=== PATIENT | male | born 1945 | race Caucasian/White ===

== ENCOUNTER 2021-01-29 15:22 | Inpatient (IN) | payer MEDICARE, OTHER ==
[~2021-01-29] VITALS: Ht 165.1 cm; Wt 77.1 kg
--- NOTE | 2021-01-29 15:35 | NUR ---
TONA JURADO From Home "LKWT 2100 last night was his usual self this am family noticed him slower/not able to talk" BS-[id number]. Connected to the monitor and pulse ox. kept comfortable will continue to monitor accordingly.
[2021-01-29] MEDS ORDERED: IOHEXOL-350 100 ML VIAL IV ONE (15:36)
[2021-01-29] MEDS ORDERED: CT SWABBABLE VALVE TRANS SET 1 EA INFUS.SET MC ONE (15:36)
[2021-01-29] MEDS ORDERED: IV NS 0.9% 250 ML IV ONE (15:37)
--- NOTE | 2021-01-29 15:37 | NUR ---
wheeled patient via [facility] for ct
--- NOTE | 2021-01-29 15:45 | NUR ---
Patient came back from ct
--- NOTE | 2021-01-29 16:10 | NUR ---
covid 19 swab collected and sent to lab
[2021-01-29] MEDS ORDERED: GABA-532 PO (16:16)
[2021-01-29] MEDS ORDERED: AMLO-212 PO (16:16)
[2021-01-29] MEDS ORDERED: ATOR20TA PO (16:16)
[2021-01-29] MEDS ORDERED: SITA25TA PO (16:16)
[2021-01-29] MEDS ORDERED: FOLI0.8C PO (16:16)
[2021-01-29] MEDS ORDERED: METO50TA16 PO (16:16)
[2021-01-29] MEDS ORDERED: CLOP75TA15 PO (16:16)
[2021-01-29 16:25] LABS: BASOPHILS # (AUTO) 0.1 /CMM (0.0-0.2); BASOPHILS % (AUTO) 0.4 % (0.0-2.0); EOSINOPHILS % (AUTO) 0.3 % (0.0-6.0); HEMATOCRIT 45 % (39-51); HEMOGLOBIN 14.6 g/dL (13.5-17.5); LYMPHOCYTES % (AUTO) 13.7 % (20.0-44.0); MEAN CORPUSCULAR HGB CONC 33 g/dl (31.0-36.0); MEAN CORPUSCULAR VOLUME 86 fL (80-96); MONOCYTES % (AUTO) 6.6 % (2.0-12.0); NEUTROPHILS # (AUTO) 11.4 /CMM (1.8-8.9); PLATELET COUNT (AUTO) 186 /CMM (150-450); RED BLOOD CELL COUNT(AUTO) 5.18 MIL/uL (4.5-6.0); WHITE BLOOD COUNT (AUTO) 14.5 K/uL (4.3-11.0)
--- NOTE | 2021-01-29 16:30 | NUR ---
MOVE SHEET SUBMITTED AND CALLED FOR TELE BED.
[2021-01-29 16:43] LABS: ALANINE AMINOTRANSFERASE 29 U/L (12-78); ALBUMIN 3.3 g/dL (3.4-5.0); ALKALINE PHOSPHATASE 77 U/L (46-116); ASPARTATE AMINOTRANSFERASE 15 U/L (15-37); BILIRUBIN,DIRECT 0.1 mg/dL (0.0-0.2); BILIRUBIN,TOTAL 0.8 mg/dL (0.2-1.0); CALCIUM, SERUM 8.7 mg/dL (8.5-10.1); CARBON DIOXIDE 21 mmol/L (21-32); CHLORIDE 101 mmol/L (98-107); CREATININE 1.1 mg/dL (0.6-1.3); GLUCOSE 207 mg/dL (74-106); SODIUM SERUM 134 mmol/L (136-145); TOTAL PROTEIN, SERUM 7.3 g/dL (6.4-8.2); UREA NITROGEN, BLOOD 16 mg/dL (7-18)
--- NOTE | 2021-01-29 16:44 | NUR ---
urine collected and sent to lab
[2021-01-29 17:00] LABS: BILIRUBIN,URINE NEGATIVE (NEGATIVE); LEUKOCYTE ESTERASE ,URINE NEGATIVE (NEGATIVE); NITRITE, URINE NEGATIVE (NEGATIVE); PROTEIN,URINE NEGATIVE (NEGATIVE); UGLUCOSE 500 MG/DL mg/dL (NEGATIVE); UROBILINOGEN,URINE 0.2 EU/dL (0.2)
[2021-01-29 17:04] LABS: COLOR,URINE DARK YELLOW (YELLOW)
--- NOTE | 2021-01-29 17:04 | NUR ---
[facility] CALLED HEEL EMERY BUFFER PAGED.
--- NOTE | 2021-01-29 17:12 | NUR ---
received a call from the lab regarding covid swab result "negative".
[2021-01-29] MEDS ORDERED: IV NS 0.9% 1,000 ML BAG IV ONE (17:30)
--- NOTE | 2021-01-29 17:37 | NUR ---
GOT BED 325-2
[2021-01-29 17:40] LABS: CHOLESTEROL 170 mg/dL (<200); HDL CHOLESTEROL 42 mg/dL (40-60); LDL 105 mg/dL (0-99); TRIGLYCERIDES 122 mg/dL (30-150)
[2021-01-29 17:41] LABS: BACTERIA,URINE Few /HPF (None Seen); RBC,URINE 51-80 /HPF (0-2); SQUAMOUS EPITHELIAL CELL,UR Few /HPF (None Seen); WBC,URINE 0-2 /HPF (0-3)
--- NOTE | 2021-01-29 18:26 | NUR ---
report given to rad NGUYỄN for jose e.
--- NOTE | 2021-01-29 18:27 | NUR ---
wheeled patient via gurney accompanied by Rn and emt in no distress. RN at bedside to assume care.
[2021-01-29] MEDS: BLOOD SUGAR DIAGNOSTIC 1 EACH STRIP IN SCH ×2 (19:01→22:24)
--- NOTE | 2021-01-29 19:26 | NUR ---
RN NOTES PT RECEIVED ALERT AND ORIENTED X 1-2 PT PT IN BED SLEEPING EASILY WOKEN UP. PT REPORTS NO PAIN OR DISCOMFORT AT THIS TIME NO RESPIRATORY DISTRESS NOTED OR REPORTED PT ON ROOM AIR TOLERATING WELL. SKIN CHECK DONE PT HAS NO BRUISING OR EDEMA NOTED. 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 ACTIVE BOWEL SOUNDS HERD IN ALL FOUR QUADRANTS ABDOMEN IS SOFT NON TENDER NON DISTENDED. BILATERAL LUNG SOUNDS ARE CLEAR UPON AUSCULTATION. ALL NURSING NEEDS MET AT THIS TIME.CALL LIGHT PLACED WITHIN PT REACH. PT ORIENTED TO UNIT. SAFETY MEASURES FOLLOWED. BILATERAL SIDE RAILS UP BED IN LOWEST POSITION HOB ELEVATED.WILL CONTINUE TO MONITOR
[2021-01-29 20:00] VITALS: BP 143/94
[2021-01-29] MEDS: ATORVASTATIN 40 MG TABLET PO SCH (22:00)
[2021-01-30] VITALS: BP 139/83
[2021-01-30] MEDS: BLOOD SUGAR DIAGNOSTIC 1 EACH STRIP IN SCH ×7 (00:19→21:38)
[2021-01-30] MEDS: IV D5/ 0.9% NACL 1,000 ML IV PRN ×2 (03:33→21:46)
[2021-01-30 04:00] VITALS: BP 137/82
--- NOTE | 2021-01-30 05:43 | NUR ---
RN NOTES PTS 0600 BLOOD SUGAR WAS 150 MD NOTIFIED NO NEW ORDERS AT THIS TIME. WILL CONTINUE TO MONITOR.
[2021-01-30 06:09] LABS: BASOPHILS % (AUTO) 0.5 % (0.0-2.0); EOSINOPHILS % (AUTO) 0.3 % (0.0-6.0); HEMATOCRIT 44 % (39-51); HEMOGLOBIN 14.7 g/dL (13.5-17.5); LYMPHOCYTES % (AUTO) 22.2 % (20.0-44.0); MEAN CORPUSCULAR HGB CONC 33 g/dl (31.0-36.0); MEAN CORPUSCULAR VOLUME 85 fL (80-96); PLATELET COUNT (AUTO) 182 /CMM (150-450); RED BLOOD CELL COUNT(AUTO) 5.22 MIL/uL (4.5-6.0); WHITE BLOOD COUNT (AUTO) 9.1 K/uL (4.3-11.0)
--- NOTE | 2021-01-30 06:36 | NUR ---
RN NOTES PTALERT AND ORIENTED X 1-2 PT PT IN BED SLEEPING EASILY WOKEN UP. PT REPORTS NO PAIN OR DISCOMFORT AT THIS TIME NO RESPIRATORY DISTRESS NOTED OR REPORTED PT ON ROOM AIR TOLERATING WELL.ALL NURSING NEEDS MET AT THIS TIME.CALL LIGHT PLACED WITHIN PT REACH. PT ORIENTED TO UNIT. SAFETY MEASURES FOLLOWED. BILATERAL SIDE RAILS UP BED IN LOWEST POSITION HOB ELEVATED.WILL ENDORSE CARE TO DAY SHIFT NURSE.
[2021-01-30 06:52] LABS: CALCIUM, SERUM 8.8 mg/dL (8.5-10.1); POTASSIUM 3.5 mmol/L (3.5-5.1)
--- NOTE | 2021-01-30 06:56 | NUR ---
TEXTED DR. MAYEN FOR MRI APPROVAL.
[2021-01-30 08:00] VITALS: BP 124/64
--- NOTE | 2021-01-30 08:00 | NUR ---
RN Opening note Received patient in bed, AO x 1-2, Angolan speaking, able to responds all stimuli. Assessed patient swallowing and patient able to swallow without coughing or choking. Does no appears pain or distress. Respiratory even and unlabored on room air. Skin is warm to touch, keep clean/dry, intact IV site. Kept elevated HOB for ensure airway and aspiration precaution, also lowest bed position for safety. Call light within reach, will continue to monitor.
[2021-01-30] MEDS ORDERED: GABAPENTIN 100 MG CAPSULE PO SCH (09:00)
[2021-01-30] MEDS: CLOPIDOGREL BISULFATE 75 MG TABLET PO SCH (09:21)
[2021-01-30] MEDS: METOPROLOL TARTRATE 50 MG TABLET PO SCH ×2 (09:21→16:29)
[2021-01-30] MEDS: FOLIC ACID 1 MG TABLET PO SCH (09:22)
[2021-01-30] MEDS: AMLODIPINE BESYLATE 5 MG TABLET PO SCH (09:22)
[2021-01-30] MEDS: PANTOPRAZOLE 40 MG TABLET.DR PO SCH (09:23)
--- NOTE | 2021-01-30 10:00 | NUR ---
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 Waiting Neuro consult. .
--- NOTE | 2021-01-30 12:29 | NUR ---
Patient BS 224mg/dl, >150 informed MD and received SSI order. Noted and carry out.
--- NOTE | 2021-01-30 12:55 | NUR ---
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 Will hold MRI for today.
[2021-01-30] MEDS ORDERED: *INSULIN REGULAR(HUMULIN R)HUM 100 UNIT/ML VIAL SQ PRN (13:00)
[2021-01-30] MEDS ORDERED: DEXTROSE 50%-WATER 50 ML DISP.SYRIN IV PRN (13:00)
[2021-01-30 16:00] VITALS: BP 125/64
[2021-01-30] MEDS: INSULIN REGULAR, HUMAN 100 UNIT/ML 3 ML VIAL SQ PRN (16:25)
[2021-01-30] MEDS ORDERED: BLOOD SUGAR DIAGNOSTIC 1 EACH STRIP VI SCH (17:30)
--- NOTE | 2021-01-30 17:39 | NUR ---
RN Closing note Patient in bed resting, Patient does no appears pain or distress. Respiratory even and unlabored on room air, O2sat 99%, patient able to swallowing food and drinking without coughing or choking. Skin is warm to touch, keep clean/dry. Kept elevated HOB for ensure airway and aspiration precaution, also lowest bed position for safety. Call light within reach, will endorse field spec.
--- NOTE | 2021-01-30 19:40 | NUR ---
RN NOTES Patient in bed resting, Patient does no appears pain or distress. Respiratory even and unlabored on room air, O2sat 99%,. Skin is warm to touch, keep clean/dry. Kept elevated HOB for ensure airway and aspiration precaution, also lowest bed position for safety. Call light within reach will continue to monitor.
[2021-01-30 20:00] VITALS: BP 145/87
[2021-01-30] MEDS: ATORVASTATIN 40 MG TABLET PO SCH (21:29)
[2021-01-31] MEDS: BLOOD SUGAR DIAGNOSTIC 1 EACH STRIP IN SCH ×3 (06:38→17:23)
[2021-01-31] MEDS: INSULIN REGULAR, HUMAN 100 UNIT/ML 3 ML VIAL SQ PRN ×3 (06:41→17:22)
--- NOTE | 2021-01-31 07:04 | NUR ---
RN NOTES Patient in bed resting, Patient does no appears pain or distress. Respiratory even and unlabored on room air, O2sat 99%,. Skin is warm to touch, keep clean/dry. Kept elevated HOB for ensure airway and aspiration precaution, also lowest bed position for safety. Call light within reach will endorse care.
--- NOTE | 2021-01-31 07:06 | NUR ---
RN NOTES PLEASE FOLLOW UP WITH DR AVINA IT IS OKAY FOR PT TO HAVE MRI PER DAUGHTER IN LAW PT HAS C 13 CATAPULT OPERATOR SHUNT PLACED ON THE HEAD AND WOULD LIKE TO HAVE IT CONFIRMED IF ITS OKAY TO DO AN MRI.
[2021-01-31 07:10] LABS: BASOPHILS % (AUTO) 0.5 % (0.0-2.0); EOSINOPHILS % (AUTO) 1.4 % (0.0-6.0); HEMATOCRIT 37 % (39-51); HEMOGLOBIN 12.6 g/dL (13.5-17.5); LYMPHOCYTES # (AUTO) 1.9 /CMM (0.8-4.8); LYMPHOCYTES % (AUTO) 31.8 % (20.0-44.0); MEAN CORPUSCULAR HGB CONC 34 g/dl (31.0-36.0); MEAN CORPUSCULAR VOLUME 82 fL (80-96); MONOCYTES # (AUTO) 0.9 /CMM (0.1-1.30); MONOCYTES % (AUTO) 15.7 % (2.0-12.0); NEUTROPHILS % (AUTO) 50.6 % (43.0-81.0); PLATELET COUNT (AUTO) 161 /CMM (150-450); WHITE BLOOD COUNT (AUTO) 5.9 K/uL (4.3-11.0)
--- NOTE | 2021-01-31 07:45 | NUR ---
MS RN OPENING NOTES PT CURRENTLY IS AWAKE AT THIS TIME. PT IS ALERT AND ORIENTED X 2. PT'S BREATHING IS UNLABORED. PT HAS A LAC AND RAC IV ACCESS, BOTH INTACT AND PATENT. CURRENTLY, PT HAS A MECHANICAL SOFT DIET. PT IS INCONTINENT. ALL NEEDS AND CARE ATTENDED WELL. ALL SAFETY MEASURES KEPT IN PLACE. BED IN LOWEST LOCKED POSITION. CALL LIGHT WITHIN REACH AND BED ALARM ON. WILL CONTINUE TO MONITOR.
[2021-01-31 07:54] LABS: CALCIUM, SERUM 8.4 mg/dL (8.5-10.1); MAGNESIUM 1.8 mg/dL (1.8-2.4); POTASSIUM 3.3 mmol/L (3.5-5.1)
[2021-01-31 08:00] VITALS: BP 134/75
[2021-01-31] MEDS: PANTOPRAZOLE 40 MG TABLET.DR PO SCH (08:21)
[2021-01-31] MEDS: AMLODIPINE BESYLATE 5 MG TABLET PO SCH (08:23)
[2021-01-31] MEDS: FOLIC ACID 1 MG TABLET PO SCH (08:23)
[2021-01-31] MEDS: CLOPIDOGREL BISULFATE 75 MG TABLET PO SCH (08:24)
[2021-01-31] MEDS: METOPROLOL TARTRATE 50 MG TABLET PO SCH ×2 (08:24→16:55)
[2021-01-31] MEDS ORDERED: POTASSIUM CHLORIDE 20 MEQ POWDER PACKET PO SCH (10:30)
--- NOTE | 2021-01-31 10:30 | NUR ---
human services assistant Consult: human services assistant consult requested for stroke. Per chart, patient was admitted 01/29/2021 for altered mental status. Patient is a 75-year-old, white male. SW met with the patient in his hospital room on the [facility] surgical unit. Patient was alert and oriented x4. Patient is well-groomed, calm and watching television. Patient is currently living at home with son and igrntwzb-cz-onm, Candace Schafer at [address], [place] [address]; [phone]. Patient states he does not really remember what occurred prior to admission but he provided consent for this SW to speak to his zdftdmuf-lf-jof, Candace [phone]. SW discussed social support with the patient and patient stated that he has adequate support from his son, mfymrupe-ro-lxy, and home health care providers. SW asked the patient about any sources of income and the patient stated that he receives Social Security Income. Patient stated that he is unable to walk without a wheelchair or walker. Patients family and home health providers assist the patient with his ADLs. Patient denies any history of mental illness. Patient denies any current suicidal or homicidal ideations. SW completed a PHQ-9 assessment and discussed resources with the patient. Patient scored 0 on the PHQ-9. SW presented a resource to the patient, Empowerment After Stroke. Patient refused the packet, but thanked SW for the resource. PLAN: SW spoke to the patient about his discharge plan. Patient stated that he will be returning home to [address], [place] [address]; [phone]. Patient stated that his son and iloezpgp-el-nxi will be able to pick him up from the hospital at the time of discharge. SW will remain available to the patient, as needed. SW will contact patients loykigya-ki-kplCandace to discuss the patients discharge plan.
--- NOTE | 2021-01-31 10:40 | NUR ---
Cone Operator: CASSANDRA spoke to patients eseoklcj-ip-xiw, Candace Schafer [phone] to discuss the patients discharge plan. Candace mentioned that she and the patients son will be able to brass pickler the patient at discharge. Prior to admission, Candace stated that the patient was eating slowly, having trouble focusing and not responding to prompts. The family called 911 as they noticed that the patients symptoms were worsening. Candace mentioned that the patient is cared for while at home and home health care providers have been assisting the patient with his ADLs daily. Candace stated that the patient requires a wheelchair or walker to ambulate and is unable to walk with a walker without some assistance.
[2021-01-31 16:00] VITALS: BP 130/82
[2021-01-31 16:55] VITALS: BP 130/85
--- NOTE | 2021-01-31 18:32 | NUR ---
RN DISCHARGED NOTES PT DISCHARGED TO [facility] IN STABLE CONDITION. CALLED AND REPORT/DISCHARGED INSTRUCTIONS GIVEN TO DELMA PATTEN, SAME CALLED DAUGHTER IN LAW GARTH AND INFORMED OF PT'S TRANSFER TO [facility] THIS AFTERNOON. PT IS A/O X2-3. VERBALLY RESPONSIVE. V/S TAKEN, STABLE AND RECORDED. PHOTO OF SKIN ISSUE FROM SACRUM TAKEN FROM PREVIOUS SHIFT. ALL BELONGINGS ACCOUNTED FOR. IV ACCESS ON RAC REMOVED BUT IV ACCESS ON LAC G#[address] PER REQUEST BY DELMA PATTEN. PT LEFT UNIT AT 1820 VIA GURNEY ACCOMPANIED BY [address] [facility]. MD AND CHARGE NURSE AWARE OF DISCHARGE.
[2021-02-01] MEDS ORDERED: ANESTHESIA TRAY IN PYXIS 1 EA TRAY MC ONE (14:36)
== END 2021-01-31 18:22 | DRG 70 ==
LOC: ER 15:26 → TELE 17:47 → MED 01-30 08:42
PROVIDERS: ADMIT Student in an Organized Health Care Education/Training Program; ATTEND Student in an Organized Health Care Education/Training Program
DX: G93.41 Metabolic encephalopathy (principal); R40.2342 Coma scale, best motor response, flexion withdrawal, at arrival to emergency department; R40.2212 Coma scale, best verbal response, none, at arrival to emergency department; E44.1 Mild protein-calorie malnutrition; E87.1 Hypo-osmolality and hyponatremia; G81.91 Hemiplegia, unspecified affecting right dominant side; D72.829 Elevated white blood cell count, unspecified; R29.722 NIHSS score 22; Z20.822 Contact with and (suspected) exposure to COVID-19; R40.2142 Coma scale, eyes open, spontaneous, at arrival to emergency department; I10 Essential (primary) hypertension; Z86.73 Personal history of transient ischemic attack (TIA), and cerebral infarction without residual deficits; Z98.2 Presence of cerebrospinal fluid drainage device; Z79.84 Long term (current) use of oral hypoglycemic drugs; Z79.02 Long term (current) use of antithrombotics/antiplatelets; Z79.899 Other long term (current) drug therapy; E78.5 Hyperlipidemia, unspecified; M48.02 Spinal stenosis, cervical region; G93.89 Other specified disorders of brain
CPT/HCPCS: 36415; 70450-TC; 70496-TC; 70498-TC; 71045-TC; 80048-TC; 80061-TC; 80076-TC; 81001; 82962-TC; 83735-TC; 84100-TC; 84484-TC; 85025-TC; 85730-TC; 87081-TC; 92526; 92611-TC; 93307-TC; 97110-TC; 97112-TC; 97530-TC; C9803; G0378; J1815; J7030; J7042; J7050; Q9967

== ENCOUNTER 2021-07-12 21:42 | Inpatient (IN) | payer MEDICARE, OTHER ==
[~2021-07-12] VITALS: Ht 172.7 cm; Wt 72.1 kg
[~2021-07-12 21:42] MED LIST: AMLO-212 PO; ATOR20TA PO; CLOP75TA15 PO; FOLI0.8C PO; GABA-532 PO; METO50TA16 PO; SITA25TA PO
--- NOTE | 2021-07-12 22:11 | NUR ---
RECEIVED A CALL FROM HER DAUGHTER IN LAW WHICH IS HER PRIMARY CAREGIVER. SHE REPORTED THAT AT 2114, PT BECAME UNRESPONSIVE, NOT ANSWERING, DROOLED AND SHAKING. INFORMATION RELAYED TO DR. GROSS.
--- NOTE | 2021-07-12 22:15 | NUR ---
GARTH, DAUGHTER IN LAW - [phone]
[2021-07-12 23:16] LABS: BASOPHILS # (AUTO) 0.1 K/uL (0.0-0.2); BASOPHILS % (AUTO) 0.4 % (0.0-2.0); EOSINOPHILS % (AUTO) 0.2 % (0.0-6.0); HEMATOCRIT 39 % (39-51); HEMOGLOBIN 12.9 g/dL (13.5-17.5); LYMPHOCYTES # (AUTO) 1.1 K/uL (0.8-4.8); MEAN CORPUSCULAR HGB CONC 33 g/dl (31.0-36.0); MEAN CORPUSCULAR VOLUME 83 fL (80-96); MONOCYTES % (AUTO) 7.1 % (2.0-12.0); NEUTROPHILS # (AUTO) 11.5 K/uL (1.8-8.9); NEUTROPHILS % (AUTO) 84.3 % (43.0-81.0); PLATELET COUNT (AUTO) 223 K/uL (150-450); RED BLOOD CELL COUNT(AUTO) 4.68 MIL/uL (4.5-6.0); WHITE BLOOD COUNT (AUTO) 13.7 K/uL (4.3-11.0)
[2021-07-12 23:37] LABS: CALCIUM, SERUM 8.8 mg/dL (8.5-10.1); CARBON DIOXIDE 24 mmol/L (21-32); CHLORIDE 106 mmol/L (98-107); CREATININE 1.1 mg/dL (0.6-1.3); GLUCOSE 179 mg/dL (74-106); POTASSIUM 4.2 mmol/L (3.5-5.1); SODIUM SERUM 142 mmol/L (136-145); UREA NITROGEN, BLOOD 14 mg/dL (7-18)
[2021-07-12 23:43] LABS: ALANINE AMINOTRANSFERASE 17 U/L (12-78); ALBUMIN 3.1 g/dL (3.4-5.0); ALKALINE PHOSPHATASE 55 U/L (46-116); ASPARTATE AMINOTRANSFERASE 14 U/L (15-37); BILIRUBIN,DIRECT 0.1 mg/dL (0.0-0.2); BILIRUBIN,TOTAL 0.5 mg/dL (0.2-1.0); TOTAL PROTEIN, SERUM 6.6 g/dL (6.4-8.2)
[2021-07-13 00:03] LABS: BILIRUBIN,URINE Negative (NEGATIVE); COLOR,URINE YELLOW (YELLOW); LEUKOCYTE ESTERASE ,URINE Negative (NEGATIVE); NITRITE, URINE Negative (NEGATIVE); PH,URINE 5.5 (5.0-8.0); PROTEIN,URINE Negative (NEGATIVE); UGLUCOSE Negative (NEGATIVE); UROBILINOGEN,URINE 0.2 EU/dL (0.2)
[2021-07-13 00:13] LABS: BACTERIA,URINE Rare /HPF (None Seen); SQUAMOUS EPITHELIAL CELL,UR Few /HPF (None Seen); WBC,URINE NONE SEEN /HPF (0-3)
[2021-07-13 00:23] LABS: CHOLESTEROL 152 mg/dL (<200); HDL CHOLESTEROL 38 mg/dL (40-60); LDL 89 mg/dL (0-99); TRIGLYCERIDES 109 mg/dL (30-150)
[2021-07-13] MEDS ORDERED: ONDANSETRON HCL/PF 4 MG/2 ML VIAL IVP PRN (01:30)
[2021-07-13] MEDS ORDERED: MAGNESIUM HYDROXIDE 30 ML UDC PO PRN (01:30)
[2021-07-13] MEDS ORDERED: ACETAMINOPHEN 325 MG TABLET PO PRN (01:30)
[2021-07-13] MEDS ORDERED: MAG HYDROX/AL HYDROX/SIMETH 30 ML UDC PO PRN (01:30)
[2021-07-13] MEDS ORDERED: Z GUARD REMEDY 2 OZ OINT TP PRN (01:30)
--- NOTE | 2021-07-13 01:30 | NUR ---
called house sup for bed
--- NOTE | 2021-07-13 01:34 | NUR ---
f/u with lab about covid results, machine is down
[2021-07-13 02:45] LABS: THYROID STIMULATING HORMONE 0.878 uIU/mL (0.358-3.74)
--- NOTE | 2021-07-13 03:23 | NUR ---
REPORT GIVEN TO MATILDA 3W FOR SHANNA.
--- NOTE | 2021-07-13 03:35 | NUR ---
PATIENT TRANSFERRED PER ACLS PROTOCOL
--- NOTE | 2021-07-13 03:45 | NUR ---
ADMITTING RN NOTES PT IS A 76 YEAR OLD MALE WITH A HX OF CVA WITH HEMIPLEGIA, HTN AND DM. PT WAS BOUGHT TO THE ER BY HIS FAMILY DUE TO " ALTERED MENTAL STATUS DROOLING AND SHAKING" PER FAMILY. PT IS CURRENTLY NOT HAVING ANY OF THESE SYMPTOMS. ADMITTING DX IA TIA PT A/O X 2-3 NO PAIN OR DISCOMFORT REPORTED OR VISIBLE PT ON 2L VIA NASAL CANNULA AT 97% TOLERATING WELL. PT HAS LEFT FOREARM 18 G S/L FLUSHING WELL INTACT.NURSING SWALLOW EVALUATION DONE AT BEDSIDE PT PASSED. NIHSS SCORE AT THIS TIME IS 10 AT THIS TIME.SKIN IS WARM AND DRY AT THIS TIME NO DISCOLORATION NOTED NO WOUNDS.CALL LIGHT WITHIN REACH.ORIENTED TO ROOM AND UNIT. SEIZURE PRECAUTIONS, ASPIRATION PRECAUTIONS, FALL PRECAUTIONS MAINTAINED. BED ALARM ON AT THIS TIME. WILL CONTINUE TO MONITOR.
[2021-07-13 04:05] VITALS: BP 116/65
--- NOTE | 2021-07-13 06:37 | NUR ---
RN CLOSING NOTES PT A/O X 2-3 NO PAIN OR DISCOMFORT REPORTED OR VISIBLE PT ON 2L VIA NASAL CANNULA AT 97% TOLERATING WELL. PT HAS LEFT FOREARM 18 G S/L FLUSHING WELL INTACT..SKIN IS WARM AND DRY AT THIS TIME.CALL LIGHT WITHIN REACH.ORIENTED TO ROOM AND UNIT. SEIZURE PRECAUTIONS, ASPIRATION PRECAUTIONS, FALL PRECAUTIONS MAINTAINED. BED ALARM ON AT THIS TIME. WILL ENDORSE CARE TO DAY SHIFT NURSE.
[2021-07-13 08:00] VITALS: BP 103/58
[2021-07-13] MEDS: BLOOD SUGAR DIAGNOSTIC 1 EACH STRIP IN SCH ×4 (08:36→21:47)
[2021-07-13] MEDS: METOPROLOL TARTRATE 50 MG TABLET PO SCH ×2 (09:00→18:17)
[2021-07-13] MEDS: AMLODIPINE BESYLATE 5 MG TABLET PO SCH (09:00)
--- NOTE | 2021-07-13 10:00 | NUR ---
provided pt. with written stroke information.pt. refusing dvt pumps. removing other devices as well.
[2021-07-13] MEDS: FOLIC ACID 1 MG TABLET PO SCH (10:05)
[2021-07-13] MEDS: LINAGLIPTIN 5 MG TABLET PO SCH (10:05)
[2021-07-13] MEDS: GABAPENTIN 100 MG CAPSULE PO SCH ×3 (10:05→18:17)
[2021-07-13] MEDS: CLOPIDOGREL BISULFATE 75 MG TABLET PO SCH (10:05)
[2021-07-13] MEDS: PANTOPRAZOLE 40 MG TABLET.DR PO SCH (10:05)
[2021-07-13 16:00] VITALS: BP 143/84
[2021-07-13 16:41] LABS: BILIRUBIN,URINE NEGATIVE (NEGATIVE); COLOR,URINE YELLOW (YELLOW); LEUKOCYTE ESTERASE ,URINE NEGATIVE (NEGATIVE); NITRITE, URINE NEGATIVE (NEGATIVE); PH,URINE 5.5 (5.0-8.0); PROTEIN,URINE NEGATIVE (NEGATIVE); UGLUCOSE NEGATIVE (NEGATIVE); UROBILINOGEN,URINE 0.2 EU/dL (0.2)
[2021-07-13 17:05] LABS: BACTERIA,URINE Few /HPF (None Seen); SQUAMOUS EPITHELIAL CELL,UR Few /HPF (None Seen); WBC,URINE 0-2 /HPF (0-3)
--- NOTE | 2021-07-13 18:00 | NUR ---
FAMILY CALLING IN OFTEN.
--- NOTE | 2021-07-13 19:30 | NUR ---
CAR RIDER NOTES RECEIVED ON BED SLEEPING,AROUSABLE TO VERBAL STIMULI,BREATHING REGULAR,NOT IN ANY FORM OF DISTRESS,SALINE LOCK LEFT FOREARM INTACT AND PATENT.FALL RISK,BED ALARM ON,BED ON LOWEST POSITION AND LOCKED,CALL LIGHT IN REACH,NEEDS ANTICIPATED.
[2021-07-13 20:00] VITALS: BP 111/69
--- NOTE | 2021-07-13 20:59 | NUR ---
MOLDING LINE OPERATOR NOTES SR-63 ON TELE MONITOR
[2021-07-13 21:01] VITALS: BP 111/69
--- NOTE | 2021-07-13 21:58 | NUR ---
BUFFING WHEEL OPERATOR NOTES ACCU-CHECK BLOOD SUGAR CHECK 176-176,NO INSULIN COVERAGE PER FAMILY REQUEST Addendum: 07/13/21 at 2347 by CALIN RAMOS RN BLOOD SUGAR AT 2200-176 MG/DL
[2021-07-13] MEDS ORDERED: ATORVASTATIN 40 MG TABLET PO SCH (22:00)
[2021-07-14] VITALS: BP_SYST 123; BP_DIAS 67; BP_DIAS 68
[2021-07-14 04:00] VITALS: BP_SYST 112; BP_DIAS 66; BP_DIAS 67
[2021-07-14] MEDS: BLOOD SUGAR DIAGNOSTIC 1 EACH STRIP IN SCH ×6 (05:31→21:30)
--- NOTE | 2021-07-14 06:05 | NUR ---
TATTOO AND BODY ARTIST NOTES ACCU-CHECK BLOOD SUGAR CHECK 110,NO INSULIN COVERAGE
[2021-07-14 06:16] LABS: BASOPHILS % (AUTO) 0.5 % (0.0-2.0); EOSINOPHILS % (AUTO) 1.8 % (0.0-6.0); HEMATOCRIT 36 % (39-51); HEMOGLOBIN 12.2 g/dL (13.5-17.5); LYMPHOCYTES # (AUTO) 2.8 K/uL (0.8-4.8); LYMPHOCYTES % (AUTO) 33.1 % (20.0-44.0); MEAN CORPUSCULAR HGB CONC 34 g/dl (31.0-36.0); MEAN CORPUSCULAR VOLUME 83 fL (80-96); MONOCYTES # (AUTO) 1.1 K/uL (0.1-1.30); MONOCYTES % (AUTO) 13.2 % (2.0-12.0); NEUTROPHILS # (AUTO) 4.3 K/uL (1.8-8.9); NEUTROPHILS % (AUTO) 51.4 % (43.0-81.0); PLATELET COUNT (AUTO) 188 K/uL (150-450); RED BLOOD CELL COUNT(AUTO) 4.28 MIL/uL (4.5-6.0); WHITE BLOOD COUNT (AUTO) 8.4 K/uL (4.3-11.0)
[2021-07-14 06:35] LABS: CALCIUM, SERUM 8.8 mg/dL (8.5-10.1); CREATININE 0.8 mg/dL (0.6-1.3); POTASSIUM 3.9 mmol/L (3.5-5.1)
--- NOTE | 2021-07-14 06:45 | NUR ---
HULL INSPECTOR NOTES RESTING COMFORTABLY ON BED,SMILING,DENIES ANY DISCOMFORTS,REMAINS WITH RIGHT SIDED WEAKNESS,REPOSITION PER PROTOCOL.CALL LIGHT IN REACH,NEEDS ATTENDED.
--- NOTE | 2021-07-14 07:30 | NUR ---
FLAKE CUTTER OPERATOR OPENING NOTES RECEIVED PATIENT AWAKE ON BED AND A/O X4. ON O2 AT 2LPM, BREATHING EVENLY AND UNLABORED. NOT IN DISTRESS. WITH NO COMPLAINTS OF PAIN OR DISCOMFORT AT THIS TIME. WITH IV ACCESS AT LEFT FA G18, HEPLOCK, INTACT AND PATENT. SAFETY MEASURES IN PLACED. CALL LIGHT WITHIN EASY REACH. BED ON LOWEST AND LOCKED POSITION WITH SIDE RAILS UP X2. WILL CONTINUE TO MONITOR.
[2021-07-14 08:00] VITALS: BP 115/65
[2021-07-14] MEDS ORDERED: DEXTROSE 50%-WATER 50 ML DISP.SYRIN IV PRN (09:00)
[2021-07-14] MEDS: CLOPIDOGREL BISULFATE 75 MG TABLET PO SCH (09:51)
[2021-07-14] MEDS: GABAPENTIN 100 MG CAPSULE PO SCH ×3 (09:51→17:10)
[2021-07-14] MEDS: PANTOPRAZOLE 40 MG TABLET.DR PO SCH (09:51)
[2021-07-14] MEDS: LINAGLIPTIN 5 MG TABLET PO SCH (09:52)
[2021-07-14] MEDS: METOPROLOL TARTRATE 50 MG TABLET PO SCH ×2 (09:53→17:10)
[2021-07-14] MEDS: AMLODIPINE BESYLATE 5 MG TABLET PO SCH (09:53)
[2021-07-14] MEDS: FOLIC ACID 1 MG TABLET PO SCH (09:56)
[2021-07-14 12:00] VITALS: BP 114/63
[2021-07-14 16:00] VITALS: BP 121/70
--- NOTE | 2021-07-14 16:14 | NUR ---
SS Consult: SS consult requested for stroke protocol. The pt. is a 76 year old Citizen Of [place] male at [facility]. Upon SS consult, pt. is [place] speaking only. Pt. was verbalizing in [place] and was able to communicate by nodding.Pt. made good eye contact and had a flat affect. Pt. confirmed address, last name and gave SW consent to seak to his family, Candace Schafer [phone]. SW called Candace who stated that she is the tvvqrbds-az-ocs and caregiver. Pt Candace, the pt. was havign dinner when he began havign seizure like movement and became confused and unable to answer any questions. Per Candace, pt. has HX. of stroke and she called paramedics. Candace stated that she spoke to pt. last night and pt. is now more oriented X 3. Cnadace states pt has never verbalized SI/HI or hallucinations. Jef Maria pt. will return back home[[id number] [facility] [address]; [phone]] when ready to discharge. Jef Maria pt.'s children:Max [phone] and Alessia [phone] are his support system. Jef Maria pt. drinks wine at times and lopez not use drugs. Jef Maria pt. has never been diagnosed with mental illness. CASSANDRA placed Stroke Empowerment educational material in pt.'s chart for D/C.
[2021-07-14] MEDS: INSULIN REGULAR, HUMAN 100 UNIT/ML 3 ML VIAL SQ PRN (17:14)
--- NOTE | 2021-07-14 18:19 | NUR ---
POLO COACH CLOSING NOTES PATIENT AWAKE ON BED AND A/O X4. ON O2 AT 2LPM, BREATHING EVENLY AND UNLABORED. NOT IN DISTRESS. WITH NO COMPLAINTS OF PAIN OR DISCOMFORT AT THIS TIME. WITH IV ACCESS AT LEFT FA G18, HEPLOCK, INTACT AND PATENT. DUE MEDS GIVEN. SAFETY MEASURES IN PLACED. CALL LIGHT WITHIN EASY REACH. BED ON LOWEST AND LOCKED POSITION WITH SIDE RAILS UP X2. WILL ENDORSE TO NEXT SHIFT FOR SHANNA..
--- NOTE | 2021-07-14 19:30 | NUR ---
BANDOLEER STRAIGHTENER STAMPER NOTES RECEIVED ON BED A/O X2-3,WATCHING TV PROGRAM,BREATHING REGULAR,NOT IN ANY FORM OF DISTRESS,O2 SAT 97% ON ROOM AIR.WITH RIGHT SIDED WEAKNESS,DUE TO CVA.NO FACIAL DROOP NOTED,STRONG HOME ECONOMIST CONSUMER SERVICE ON LEFT HAND,WEAK ON RIGHT HAND,SALINE LEFT FOREARM INTACT AND PATENT.,REPOSITION PER PROTOCOL,CALL LIGHT IN REACH,NEEDS ANTICIPATED.
[2021-07-14 20:00] VITALS: BP 112/66
[2021-07-14] MEDS: ASPIRIN 81 MG TAB.CHEW PO SCH (21:27)
[2021-07-14] MEDS ORDERED: ATORVASTATIN 40 MG TABLET PO SCH (22:00)
[2021-07-15] VITALS: BP 123/68
[2021-07-15 04:00] VITALS: BP 139/69
--- NOTE | 2021-07-15 05:30 | NUR ---
RING MAKER NOTES ACCU-CHECK BLOOD SUGAR CHECK 104,NO INSULIN COVERAGE.
--- NOTE | 2021-07-15 07:30 | NUR ---
CAR USHER OPENING NOTES RECEIVED PATIENT ON BED, ASLEEP. ON O2 AT 2LPM VIA NASAL CANNULA, BREATHING EVENLY AND UNLABORED. WITH NO SIGNS OF PAIN OR DISCOMFORT NOTED. WITH IV ACCESS AT LEFT FA G18, SALINE LOCKED, PATENT AND INTACT. FOR D/C PLANNING WHEN CLEARED BY NEURO. SAFETY MEASURES IN PLACED. CALL LIGHT WITHIN REACH. BED ON LOWEST AND LOCKED POSITION WITH SIDE RAILS UP X2. WILL CONTINUE TO MONITOR.
[2021-07-15 08:00] VITALS: BP 115/70
[2021-07-15] MEDS: ASPIRIN 81 MG TAB.CHEW PO SCH (08:58)
[2021-07-15] MEDS: GABAPENTIN 100 MG CAPSULE PO SCH ×3 (08:59→17:23)
[2021-07-15] MEDS: CLOPIDOGREL BISULFATE 75 MG TABLET PO SCH (08:59)
[2021-07-15] MEDS: FOLIC ACID 1 MG TABLET PO SCH (08:59)
[2021-07-15] MEDS: AMLODIPINE BESYLATE 5 MG TABLET PO SCH (09:01)
[2021-07-15] MEDS: METOPROLOL TARTRATE 50 MG TABLET PO SCH (09:02)
[2021-07-15] MEDS: LINAGLIPTIN 5 MG TABLET PO SCH (09:03)
[2021-07-15] MEDS: PANTOPRAZOLE 40 MG TABLET.DR PO SCH (09:03)
[2021-07-15] MEDS: BLOOD SUGAR DIAGNOSTIC 1 EACH STRIP IN SCH ×3 (09:04→17:53)
[2021-07-15] MEDS ORDERED: ASPI-1169 PO (11:15)
[2021-07-15] MEDS ORDERED: ATOR80TA PO (11:15)
[2021-07-15] MEDS: INSULIN REGULAR, HUMAN 100 UNIT/ML 3 ML VIAL SQ PRN (12:47)
[2021-07-15 16:00] VITALS: BP 99/65
--- NOTE | 2021-07-15 18:50 | NUR ---
MS SUPERVISOR COLOR MAKING NOTES PATIENT FOR DISCHARGE PER DOCTOR'S ORDER TO HOME FOR HOME HEALTH. DISCHARGE INSTRUCTIONS AND EDUCATION PROVIDED TO THE SON OF THE PATIENT AND EXPLAINED MEDICATIONS AND PRESCRIPTIONS. PATIENT'S SON VERBALIZED UNDERSTANDING. DISCHARGE FORM AND BELONGINGS LIST FORM SIGNED BY SON OF THE PATIENT. ALL BELONGINGS ACCOUNTED FOR. NAME WRIST BAND AND IV LINE REMOVED. ASSISTED PATIENT TO THE LOBBY VIA WHEELCHAIR WITH SON AND LEFT VIA PRIVATE CAR. CHARGE NURSE AND MD ARE AWARE OF DISCHARGE.
== END 2021-07-15 18:44 | disposition home health service (06) | DRG 69 ==
LOC: ER 21:43 → TELE 07-13 02:05 → MED 07-15 08:17
PROVIDERS: ADMIT Nurse Practitioner Acute Care; ATTEND Nurse Practitioner Acute Care
DX: G45.9 Transient cerebral ischemic attack, unspecified (principal); E44.1 Mild protein-calorie malnutrition; G93.40 Encephalopathy, unspecified; R47.01 Aphasia; I10 Essential (primary) hypertension; Z79.02 Long term (current) use of antithrombotics/antiplatelets; Z79.84 Long term (current) use of oral hypoglycemic drugs; Z79.899 Other long term (current) drug therapy; G93.89 Other specified disorders of brain; E11.40 Type 2 diabetes mellitus with diabetic neuropathy, unspecified; E78.5 Hyperlipidemia, unspecified; I67.2 Cerebral atherosclerosis; Z98.2 Presence of cerebrospinal fluid drainage device; I70.0 Atherosclerosis of aorta; F01.50 Vascular dementia, unspecified severity, without behavioral disturbance, psychotic disturbance, mood disturbance, and anxiety; Z20.822 Contact with and (suspected) exposure to COVID-19
CPT/HCPCS: 36415; 70450-TC; 70551-TC; 71045-TC; 80048-TC; 80061-TC; 80076-TC; 81001; 82962-TC; 84443-TC; 84484-TC; 85025-TC; 85652-TC; 85730-TC; 87081-TC; 92526; 92611-TC; 93307-TC; 93880-TC; 97110-TC; 97112-TC; 97116-TC; 97530-TC; G0378; J1815